=== PATIENT | male | born 1955 | race Caucasian/White ===

== ENCOUNTER 2019-08-30 13:56 | Observation (INO) ==
[2019-08-30] MEDS ORDERED: Ondansetron 4 MG/2 ML VIAL ONE (14:01)
[2019-08-30] MEDS ORDERED: Aspirin 325 MG TABLET PO ONE (14:26)
[2019-08-30] MEDS ORDERED: Ondansetron 4 MG/2 ML VIAL IVP STA (14:38)
[2019-08-30 14:43] LABS: Bilirubin,Urine Small (Negative); Blood,Urine Negative (Negative); Clarity,Urine Clear (Clear); Color,Urine Dark Yellow (Yellow); Glucose,Urine (UA) >=1000 mg/dL (Normal); Ketones,Urine Trace mg/dL (Negative); Leukocyte Esterase,Urine Negative (Negative); Nitrite,Urine Negative (Negative); Protein,Urine Trace mg/dL (Neg-Trace); Specific Gravity,Urine 1.026 (1.010-1.025)
[2019-08-30 15:13] LABS: Basophils % 0.4 %; Eosinophils % 0.1 %; Hematocrit 42.1 % (37.5-50.1); Hemoglobin 14.8 g/dL (12.9-16.9); Immature Granulocytes % 0.5 % (0-4); Lymphocytes # 0.4 K/mcL (0.6-4.6); Lymphocytes % 4.1 %; Mean Corpuscular HGB Conc 35.2 g/dL (31.6-35.5); Mean Corpuscular Hemoglobin 30.3 pg (28.0-33.3); Mean Corpuscular Volume 86.3 fL (83.0-100.0); Mean Platelet Volume 8.9 fL (9.4-12.4); Monocytes # 0.9 K/mcL (0.0-1.3); Monocytes % 8.9 %; Neutrophils # 8.3 K/mcL (1.6-8.9); Platelet Count 251 K/mcL (140-400); Red Blood Count 4.88 M/mcL (4.19-5.50); White Blood Count 9.6 K/mcL (4.3-11.1)
[2019-08-30 15:33] LABS: Magnesium 1.4 mg/dL (1.6-2.6)
[2019-08-30 15:39] LABS: BUN/Creatinine Ratio 17 (6-26); Blood Urea Nitrogen 15 mg/dL (8-23); Carbon Dioxide 25 mEq/L (23-29); Chloride 99 mEq/L (98-107); Glucose 206 mg/dL (70-105); Osmolality,Calculated 285 (280-300); Potassium 3.8 mEq/L (3.5-5.1); Sodium 134 mEq/L (136-145); eGFR For African Americans > 60 (> 60); eGFR For Non-African Americans > 60 (> 60)
[2019-08-30] MEDS ORDERED: 0.9 % Sodium Chloride 1,000 ML IVC ONE ×2 (16:16→17:01)
[2019-08-30] MEDS ORDERED: Naloxone 0.4 MG/ML INJ IVP PRN (17:50)
[2019-08-30] MEDS ORDERED: Ondansetron ODT 4 MG TAB.RAPDIS SL PRN (17:50)
[2019-08-30] MEDS ORDERED: Nitroglycerin 0.4 MG TAB.SUBL SL PRN (17:53)
[2019-08-30] MEDS ORDERED: *HR* Dextrose 50 % in Water (Syg) 50 ML SYRINGE IVP PRN (17:56)
[2019-08-30] MEDS ORDERED: D5% in Water 1,000 ML IVC PRN (17:56)
[2019-08-30] MEDS ORDERED: Dextrose Gel 15 GM/37.5 ML TUBE PO PRN ×2 (17:56)
[2019-08-30] MEDS ORDERED: 0.9 % Sodium Chloride 1,000 ML IVC SCH (18:00)
[2019-08-30] MEDS ORDERED: Insulin LISPRO 300 UNITS/3 ML VIAL SQ SCH (21:00)
[2019-08-31] MEDS ORDERED: Acetaminophen IV 1,000 MG/100 ML INFUS..BTL IVPB ONE (00:49)
[2019-08-31 01:52] LABS: Adenovirus Not Detected (Not Detect); Bordetella Pertussis Not Detected (Not Detect); Chlamydophila pneumoniae Not Detected (Not Detect); Coronavirus 229E Not Detected (Not Detect); Coronavirus HKU1 Not Detected (Not Detect); Coronavirus NL63 Not Detected (Not Detect); Coronavirus OC43 Not Detected (Not Detect); Human Metapneumovirus Not Detected (Not Detect); Human Rhinovirus/Enterovirus Not Detected (Not Detect); Influenza A Subtype 2009 H1 Not Detected (Not Detect); Influenza A Untypeable Not Detected (Not Detect); Influenza B Not Detected (Not Detect); Mycoplasma pneumoniae Not Detected (Not Detect); Parainfluenza Virus 1 Not Detected (Not Detect); Parainfluenza Virus 2 Not Detected (Not Detect); Parainfluenza Virus 3 Not Detected (Not Detect); Parainfluenza Virus 4 Not Detected (Not Detect); Respiratory Syncytial Virus Not Detected (Not Detect)
[2019-08-31 03:00] LABS: Hematocrit 39.7 % (37.5-50.1); Hemoglobin 13.6 g/dL (12.9-16.9); Mean Corpuscular HGB Conc 34.3 g/dL (31.6-35.5); Mean Corpuscular Hemoglobin 30.4 pg (28.0-33.3); Mean Corpuscular Volume 88.6 fL (83.0-100.0); Mean Platelet Volume 8.7 fL (9.4-12.4); Platelet Count 197 K/mcL (140-400); Red Blood Count 4.48 M/mcL (4.19-5.50); Red Cell Distribution Width 13.2 % (11.5-14.5); White Blood Count 11.1 K/mcL (4.3-11.1)
[2019-08-31 03:15] LABS: BUN/Creatinine Ratio 14 (6-26); Blood Urea Nitrogen 12 mg/dL (8-23); Calcium 8.2 mg/dL (8.6-10.3); Carbon Dioxide 26 mEq/L (23-29); Chloride 99 mEq/L (98-107); Cholesterol 96 mg/dL (< 200); Glucose 165 mg/dL (70-105); HDL Cholesterol 32 mg/dL (40-59); LDL Cholesterol,Calculated 49 mg/dL (0-99); Osmolality,Calculated 279 (280-300); Potassium 3.8 mEq/L (3.5-5.1); Sodium 133 mEq/L (136-145); Triglycerides 75 mg/dL (< 150); eGFR For African Americans > 60 (> 60); eGFR For Non-African Americans > 60 (> 60)
[2019-08-31 04:21] VITALS: BP 123/82
[2019-08-31] MEDS ORDERED: Regadenoson 0.4 MG/5 ML SYRINGE IVP ONE (06:16)
[2019-08-31] MEDS ORDERED: Insulin LISPRO 300 UNITS/3 ML VIAL SQ SCH (07:30)
[2019-08-31] MEDS ORDERED: Aspirin 81 MG TAB.CHEW PO SCH (09:00)
== END 2019-08-31 12:11 | disposition home or self-care (01) ==
LOC: EMEROOARM 13:56 → 2NENU 13:56 → SUATTDRO 17:33 → 2NENU 18:47
PROVIDERS: ADMIT Family Medicine; ATTEND Family Medicine

== ENCOUNTER 2021-07-08 15:39 | Observation (INO) ==
[2021-07-08] MEDS ORDERED: 0.9 % Sodium Chloride 1,000 ML IVC ONE (15:49)
[2021-07-08] MEDS ORDERED: Isovue-370 500 ML BOTTLE IVP ONE (15:49)
[2021-07-08 15:59] LABS: Hematocrit 40.2 % (37.5-50.1); Hemoglobin 13.3 g/dL (12.9-16.9); Mean Corpuscular HGB Conc 33.1 g/dL (31.6-35.5); Mean Corpuscular Hemoglobin 30.1 pg (28.0-33.3); Mean Platelet Volume 9.1 fL (9.4-12.4); Platelet Count 258 K/mcL (140-400); Red Blood Count 4.42 M/mcL (4.19-5.50); White Blood Count 9.3 K/mcL (4.3-11.1)
[2021-07-08 16:06] LABS: INR 1.1
[2021-07-08 16:09] LABS: Activated Partial Thrombo Time 29.9 Seconds (26.0-36.0)
[2021-07-08 16:16] LABS: BUN/Creatinine Ratio 17 (6-26); Blood Urea Nitrogen 15 mg/dL (8-23); Calcium 9.1 mg/dL (8.6-10.3); Carbon Dioxide 28 mEq/L (23-29); Chloride 104 mEq/L (98-107); Ethanol < 10 mg/dL (Less than 10); Glucose 249 mg/dL (70-105); Osmolality,Calculated 297 (280-300); Potassium 4.4 mEq/L (3.5-5.1); Sodium 139 mEq/L (136-145); eGFR For African Americans > 60 (> 60); eGFR For Non-African Americans > 60 (> 60)
[2021-07-08 16:17] LABS: Troponin I < 0.03 ng/mL (< 0.04)
[2021-07-08 16:58] LABS: Amphetamine Screen,Urine Negative ng/mL (Cutoff=1000); Barbiturate Screen,Urine Negative ng/mL (Cutoff=200); Benzodiazepines Screen,Urine Negative ng/mL (Cutoff=200); Cannabinoid Screen,Urine Negative ng/mL (Cutoff = 50); Cocaine Screen,Urine Negative ng/mL (Cutoff= 300); Opiate Screen,Urine Negative ng/mL (Cutoff=300); Phencyclidine Screen,Urine Negative ng/mL (Cutoff=25)
[2021-07-08] MEDS ORDERED: *HR* Labetalol 20 MG/4 ML SYRINGE IVP PRN (17:19)
[2021-07-08] MEDS ORDERED: D5% in Water 1,000 ML IVC PRN (17:19)
[2021-07-08] MEDS ORDERED: Dextrose Gel 15 GM/37.5 ML TUBE PO PRN ×2 (17:19)
[2021-07-08] MEDS ORDERED: *HR* Dextrose 50 % in Water (Syg) 50 ML SYRINGE IVP PRN (17:19)
[2021-07-08 17:25] LABS: Influenza A PCR Negative (Negative); Influenza B PCR Negative (Negative); Resp. Syncytial Virus PCR Negative (Negative); SARS-CoV-2 by PCR (In House) Negative (Negative)
[2021-07-08] MEDS ORDERED: Perflutren Lipid Microsphere 1.3 ML in 0.9 % Sodium Chloride 8.7 ML IVP PRN (17:39)
[2021-07-08] MEDS: *HR* Heparin 5,000 UNIT/ML VIAL SQ SCH (21:38)
[2021-07-09 03:27] LABS: Alanine Aminotransferase 19 Units/L (7-52); Albumin 3.5 g/dL (3.5-5.7); Albumin/Globulin Ratio 1.3 (1.1-2.2); Alkaline Phosphatase 25 Units/L (34-104); Aspartate Amino Transferase 16 Units/L (13-39); BUN/Creatinine Ratio 15 (6-26); Bilirubin,Total 0.6 mg/dL (0.3-1.0); Blood Urea Nitrogen 11 mg/dL (8-23); Calcium 8.9 mg/dL (8.6-10.3); Carbon Dioxide 28 mEq/L (23-29); Chloride 104 mEq/L (98-107); Globulin 2.6 g/dL (2.4-3.5); Glucose 111 mg/dL (70-105); Osmolality,Calculated 292 (280-300); Potassium 3.7 mEq/L (3.5-5.1); Sodium 141 mEq/L (136-145); Total Protein 6.1 g/dL (6.4-8.9); eGFR For African Americans > 60 (> 60); eGFR For Non-African Americans > 60 (> 60)
[2021-07-09 03:56] LABS: Estimated Average Glucose 157 mg/dl; Hemoglobin A1C 7.1 %
[2021-07-09] MEDS: *HR* Heparin 5,000 UNIT/ML VIAL SQ SCH ×2 (05:35→16:44)
[2021-07-09] MEDS: Insulin LISPRO 300 UNITS/3 ML VIAL SUBQ SCH ×3 (09:02→16:45)
[2021-07-09] MEDS: Propranolol LA (24 HR) 60 MG CAP.SA.24H PO SCH (09:04)
[2021-07-09] MEDS: Aspirin Enteric Coated 81 MG Tablet PO SCH (09:04)
[2021-07-09] MEDS: Cyanocobalamin (B-12) 1,000 MCG TABLET PO SCH (09:05)
[2021-07-09] MEDS: Venlafaxine XR (24 HR) 150 MG CAP.ER.24H PO SCH (09:05)
[2021-07-09] MEDS: Insulin DETEMIR 100 UNIT/ML X5UNITS SUBQ SCH (22:01)
[2021-07-10] MEDS: *HR* Heparin 5,000 UNIT/ML VIAL SQ SCH (06:42)
[2021-07-10] MEDS: Insulin LISPRO 300 UNITS/3 ML VIAL SUBQ SCH ×2 (08:57→12:52)
[2021-07-10] MEDS: Cyanocobalamin (B-12) 1,000 MCG TABLET PO SCH (08:59)
[2021-07-10] MEDS: Venlafaxine XR (24 HR) 150 MG CAP.ER.24H PO SCH (08:59)
[2021-07-10] MEDS: Propranolol LA (24 HR) 60 MG CAP.SA.24H PO SCH (08:59)
[2021-07-10] MEDS: Aspirin Enteric Coated 81 MG Tablet PO SCH (08:59)
[2021-07-10] MEDS: Insulin DETEMIR 100 UNIT/ML X5UNITS SUBQ SCH (10:13)
[2021-07-10 11:31] VITALS: BP 153/90; PULSE 63; TEMP 98.3; O2SAT 95
== END 2021-07-10 13:58 | disposition home or self-care (01) ==
LOC: 3BNU 15:39 → EMEROOARM 15:39 → SUATTDRO 18:21 → 3BNU 19:47
PROVIDERS: ADMIT Internal Medicine; ATTEND Internal Medicine

== ENCOUNTER 2022-06-09 00:03 | Inpatient (IN) ==
[2022-06-09] MEDS ORDERED: Ketorolac 30 MG/ML VIAL IM ONE (02:10)
[2022-06-09] MEDS ORDERED: Morphine Sulfate 2 MG/ML SYRINGE IVP ONE (02:41)
[2022-06-09 03:20] LABS: Basophils # 0.1 K/mcL (0.0-0.2); Basophils % 0.6 %; Eosinophils # 0.2 K/mcL (0.0-0.6); Eosinophils % 1.6 %; Hematocrit 37.3 % (37.5-50.1); Hemoglobin 12.6 g/dL (12.9-16.9); Immature Granulocytes % 0.4 % (0-4); Lymphocytes # 1.4 K/mcL (0.6-4.6); Lymphocytes % 11.4 %; Mean Corpuscular HGB Conc 33.8 g/dL (31.6-35.5); Mean Corpuscular Hemoglobin 29.8 pg (28.0-33.3); Mean Corpuscular Volume 88.2 fL (83.0-100.0); Mean Platelet Volume 8.9 fL (9.4-12.4); Monocytes # 1.2 K/mcL (0.0-1.3); Monocytes % 9.6 %; Neutrophils # 9.5 K/mcL (1.6-8.9); Platelet Count 265 K/mcL (140-400); Red Blood Count 4.23 M/mcL (4.19-5.50); Red Cell Distribution Width 13.4 % (11.5-14.5); Segmented Neutrophils % 76.4 %; White Blood Count 12.5 K/mcL (4.3-11.1)
[2022-06-09 03:38] LABS: BUN/Creatinine Ratio 21 (6-26); Blood Urea Nitrogen 17 mg/dL (8-23); Carbon Dioxide 25 mEq/L (23-29); Chloride 103 mEq/L (98-107); Glucose 127 mg/dL (70-105); Osmolality,Calculated 287 (280-300); Sodium 137 mEq/L (136-145)
[2022-06-09] MEDS ORDERED: *HR* HYDROcodone/Acet 5/325 mg TABLET PO PRN (04:03)
[2022-06-09] MEDS ORDERED: Acetaminophen 325 MG TABLET PO PRN (04:03)
[2022-06-09] MEDS ORDERED: Ondansetron 4 MG/2 ML VIAL IVP PRN (04:03)
[2022-06-09] MEDS ORDERED: Naloxone 0.4 MG/ML INJ IVP PRN (04:03)
[2022-06-09] MEDS ORDERED: D5% in Water 1,000 ML IVC PRN (04:40)
[2022-06-09] MEDS ORDERED: Dextrose Gel 15 GM/37.5 ML TUBE PO PRN ×2 (04:40)
[2022-06-09] MEDS ORDERED: *HR* Dextrose 50 % in Water (Syg) 50 ML SYRINGE IVP PRN (04:40)
[2022-06-09] MEDS: Insulin LISPRO 300 UNITS/3 ML VIAL SUBQ SCH ×5 (05:08→20:12)
[2022-06-09] MEDS: *HR* Enoxaparin 40 MG/0.4 ML SYRINGE SQ SCH (08:57)
[2022-06-09] MEDS: *HR* OxyCODONE Immed Rel 5 MG TABLET PO PRN (12:13)
[2022-06-10] MEDS: 0.9 % Sodium Chloride 1,000 ML IVC SCH (00:36)
[2022-06-10 02:54] LABS: Basophils # 0.1 K/mcL (0.0-0.2); Basophils % 1.1 %; Eosinophils # 0.6 K/mcL (0.0-0.6); Eosinophils % 6.3 %; Hematocrit 37.3 % (37.5-50.1); Hemoglobin 12.3 g/dL (12.9-16.9); Immature Granulocytes % 0.2 % (0-4); Lymphocytes # 1.7 K/mcL (0.6-4.6); Lymphocytes % 19.3 %; Mean Corpuscular Hemoglobin 29.4 pg (28.0-33.3); Mean Corpuscular Volume 89.2 fL (83.0-100.0); Monocytes % 11.4 %; Neutrophils # 5.4 K/mcL (1.6-8.9); Platelet Count 237 K/mcL (140-400); Red Blood Count 4.18 M/mcL (4.19-5.50); Red Cell Distribution Width 13.4 % (11.5-14.5); Segmented Neutrophils % 61.7 %; White Blood Count 8.8 K/mcL (4.3-11.1)
[2022-06-10 03:02] LABS: Estimated Average Glucose 180 mg/dl; Hemoglobin A1C 7.9 %
[2022-06-10 03:04] LABS: INR 1.2; Prothrombin Time 13.6 Seconds (9.4-12.1)
[2022-06-10 03:13] LABS: BUN/Creatinine Ratio 19 (6-26); Blood Urea Nitrogen 16 mg/dL (8-23); Calcium 8.6 mg/dL (8.6-10.3); Carbon Dioxide 25 mEq/L (23-29); Chloride 102 mEq/L (98-107); Glucose 159 mg/dL (70-105); Magnesium 1.5 mg/dL (1.6-2.6); Osmolality,Calculated 287 (280-300); Potassium 4.1 mEq/L (3.5-5.1); Sodium 136 mEq/L (136-145)
[2022-06-10] MEDS: *HR* OxyCODONE Immed Rel 5 MG TABLET PO PRN ×2 (05:23→13:39)
[2022-06-10] MEDS: *HR* Enoxaparin 40 MG/0.4 ML SYRINGE SQ SCH (05:23)
[2022-06-10] MEDS ORDERED: Ondansetron 4 MG/2 ML VIAL IVP PRN ×2 (07:16→10:56)
[2022-06-10] MEDS ORDERED: *HR* FentaNYL (PF) 100 MCG/2 ML VIAL IVP PRN (07:16)
[2022-06-10] MEDS ORDERED: Ondansetron 4 MG/2 ML VIAL ONE (07:29)
[2022-06-10] MEDS ORDERED: Lidocaine HCL 4 ML Topical Solution (Laryng-O-Jet Kit Sterile Pak) TP ONE (07:29)
[2022-06-10] MEDS ORDERED: *HR* Rocuronium Bromide 50 MG/5 ML VIAL ONE ×2 (07:29→08:52)
[2022-06-10] MEDS ORDERED: Lidocaine -MPF 2% 2 ML VIAL ONE (07:29)
[2022-06-10] MEDS ORDERED: CeFAZolin Syr 2,000MG/20 ML 2,000 MG/20 ML SYRINGE IVPB ONE (08:10)
[2022-06-10] MEDS ORDERED: Ringers Solution, Lactated 1,000 ML IVC SCH (08:15)
[2022-06-10] MEDS ORDERED: Tranexamic Acid 1,000 MG/10 ML VIAL ONE ×2 (08:40→09:23)
[2022-06-10] MEDS ORDERED: *HR* FentaNYL (PF) 100 MCG/2 ML VIAL ONE (09:14)
[2022-06-10] MEDS ORDERED: Albuterol 2.5 MG/3 ML NEBULIZER IH ONE (10:09)
[2022-06-10] MEDS ORDERED: Albuterol 2.5 MG/3 ML NEBULIZER ONE (10:22)
[2022-06-10] MEDS ORDERED: Acetaminophen 325 MG TABLET PO PRN (10:56)
[2022-06-10] MEDS ORDERED: Ketorolac 30 MG/ML VIAL IVP PRN (10:56)
[2022-06-10] MEDS ORDERED: Dextrose Gel 15 GM/37.5 ML TUBE PO PRN ×2 (10:56)
[2022-06-10] MEDS ORDERED: *HR* Dextrose 50 % in Water (Syg) 50 ML SYRINGE IVP PRN (10:56)
[2022-06-10] MEDS: Insulin LISPRO 300 UNITS/3 ML VIAL SUBQ SCH ×2 (12:12→17:34)
[2022-06-10] MEDS: CeFAZolin 2 GM/120 ML BAG IVPB SCH ×2 (15:58→23:11)
[2022-06-10] MEDS: Propranolol LA (24 HR) 60 MG CAP.SA.24H PO SCH (17:33)
[2022-06-10] MEDS: Lactobacillus 1 EACH CAP.SPRINK PO SCH (20:12)
[2022-06-10] MEDS ORDERED: Insulin LISPRO 300 UNITS/3 ML VIAL SUBQ SCH (21:00)
[2022-06-11] MEDS: lisinopriL 10 MG TABLET PO SCH (09:43)
[2022-06-11] MEDS: Lactobacillus 1 EACH CAP.SPRINK PO SCH ×2 (09:43→20:27)
[2022-06-11] MEDS: Magnesium Oxide 400 MG TABLET PO SCH (09:43)
[2022-06-11] MEDS: Aspirin Enteric Coated 81 MG Tablet PO SCH (09:43)
[2022-06-11] MEDS: Propranolol LA (24 HR) 60 MG CAP.SA.24H PO SCH (09:43)
[2022-06-11] MEDS: Insulin LISPRO 300 UNITS/3 ML VIAL SUBQ SCH ×5 (09:47→20:28)
[2022-06-11] MEDS ORDERED: Aspirin Enteric Coated 81 MG Tablet PO SCH (09:58)
[2022-06-11] MEDS ORDERED: *HR* Enoxaparin 40 MG/0.4 ML SYRINGE SQ ONE (12:13)
[2022-06-11] MEDS: 0.9 % Sodium Chloride 1,000 ML IVC SCH (12:41)
[2022-06-11] MEDS: Insulin DETEMIR 100 UNIT/ML X5UNITS SUBQ SCH ×2 (16:21→20:30)
[2022-06-11] MEDS: *HR* OxyCODONE Immed Rel 5 MG TABLET PO PRN (16:42)
[2022-06-12] MEDS: *HR* OxyCODONE Immed Rel 5 MG TABLET PO PRN ×2 (03:17→21:10)
[2022-06-12] MEDS: *HR* Enoxaparin 40 MG/0.4 ML SYRINGE SQ SCH (06:20)
[2022-06-12] MEDS: Magnesium Oxide 400 MG TABLET PO SCH (07:53)
[2022-06-12] MEDS: Propranolol LA (24 HR) 60 MG CAP.SA.24H PO SCH (07:53)
[2022-06-12] MEDS: Lactobacillus 1 EACH CAP.SPRINK PO SCH ×2 (07:53→21:10)
[2022-06-12] MEDS: lisinopriL 10 MG TABLET PO SCH (07:54)
[2022-06-12] MEDS: Aspirin Enteric Coated 81 MG Tablet PO SCH (07:54)
[2022-06-12] MEDS: Insulin DETEMIR 100 UNIT/ML X5UNITS SUBQ SCH ×2 (08:01→21:10)
[2022-06-12] MEDS: Insulin LISPRO 300 UNITS/3 ML VIAL SUBQ SCH ×4 (08:02→21:10)
[2022-06-13] MEDS: *HR* Enoxaparin 40 MG/0.4 ML SYRINGE SQ SCH (05:32)
[2022-06-13 06:38] VITALS: BP 123/79; PULSE 72; TEMP 98.2; O2SAT 91
[2022-06-13] MEDS: Insulin DETEMIR 100 UNIT/ML X5UNITS SUBQ SCH (08:18)
[2022-06-13] MEDS: Insulin LISPRO 300 UNITS/3 ML VIAL SUBQ SCH ×2 (08:18→12:02)
[2022-06-13] MEDS: Aspirin Enteric Coated 81 MG Tablet PO SCH (08:52)
[2022-06-13] MEDS: Propranolol LA (24 HR) 60 MG CAP.SA.24H PO SCH (08:52)
[2022-06-13] MEDS: lisinopriL 10 MG TABLET PO SCH (08:52)
[2022-06-13] MEDS: Lactobacillus 1 EACH CAP.SPRINK PO SCH (08:52)
[2022-06-13] MEDS: Magnesium Oxide 400 MG TABLET PO SCH (08:53)
[2022-06-13 11:38] LABS: Adenovirus Not Detected (Not Detect); Bordetella Pertussis Not Detected (Not Detect); Chlamydophila pneumoniae Not Detected (Not Detect); Coronavirus 229E Not Detected (Not Detect); Coronavirus HKU1 Not Detected (Not Detect); Coronavirus NL63 Not Detected (Not Detect); Coronavirus OC43 Not Detected (Not Detect); Human Metapneumovirus Not Detected (Not Detect); Human Rhinovirus/Enterovirus Not Detected (Not Detect); Influenza A Subtype 2009 H1 Not Detected (Not Detect); Influenza B Not Detected (Not Detect); Mycoplasma pneumoniae Not Detected (Not Detect); Parainfluenza Virus 1 Not Detected (Not Detect); Parainfluenza Virus 2 Not Detected (Not Detect); Parainfluenza Virus 3 Not Detected (Not Detect); Parainfluenza Virus 4 Not Detected (Not Detect); Respiratory Syncytial Virus Not Detected (Not Detect); SARS-CoV-2 Not Detected (Not Detect)
== END 2022-06-13 15:48 | disposition home or self-care (01) | DRG 481 ==
LOC: EMEROOARM 00:03 → 4WAOSI 00:03 → SUATTDRO 04:07 → 4WAOSI 05:14
PROVIDERS: ADMIT Internal Medicine; ATTEND Hospitalist